=== PATIENT | male | born 1985 | race Caucasian/White ===

== ENCOUNTER 2018-06-08 13:04 | Emergency (ER) | payer BC, OTHER ==
[2018-06-08 14:56] VITALS: BP 143/85
--- NOTE | 2018-06-08 15:44 | ED ---
Respiratory - HPI Summary HPI Summary: 32 yr old male with the complaint of cough for 26 days, at times recently some specks of blood in the sputum. Some chills and fever feeling. He denies SOB. He has no weight loss. - History of Current Complaint Chief Complaint: UCRespiratory Stated Complaint: COUGH, VOMITING Time Seen by Provider: 06/08/18 14:53 Pain Intensity: 6 - Allergy/Home Medications Allergies/Adverse Reactions: Allergies Allergy/AdvReac Type Severity Reaction Status Date / Time No Known Allergies Allergy Verified 06/08/18 14:45 Home Medications: Home Medications [place] Carbonate TAB* 600 mg PO DAILY 06/08/18 [History Confirmed 06/08/18] PMH/Surg Hx/FS Hx/Imm Hx Infectious Disease History: No Infectious Disease History: Denies: Traveled Outside the [place] in Last 30 Days - Family History Known Family History: Positive: None - Social History Occupation: Employed Full-time Alcohol Use: None Substance Use Type: Reports: None Smoking Status (MU): Light Every Day Tobacco Smoker Type: Cigarettes Amount Used/How Often: 1/2 PPD Have You Smoked in the Last Year: Yes Review of Systems Constitutional: Negative Positive: Sore Throat, Nasal Discharge Positive: Cough All Other Systems Reviewed And Are Negative: Yes Physical Exam Triage Information Reviewed: Yes Vital Signs On Initial Exam: Initial Vitals Temp Pulse Resp BP Pulse Ox 98.2 F 65 16 143/85 100 06/08/18 14:46 06/08/18 14:46 06/08/18 14:46 06/08/18 14:46 06/08/18 14:46 Vital Signs Reviewed: Yes Appearance: Positive: Well-Appearing, No Pain Distress Skin: Positive: Warm, Skin Color Reflects Adequate Perfusion Head/Face: Positive: Normal Head/Face Inspection Eyes: Positive: EOMI ENT: Positive: Nasal congestion, TMs normal, Sinus tenderness Neck: Positive: Nontender Respiratory/Lung Sounds: Positive: Clear to Auscultation, Breath Sounds Present Cardiovascular: Positive: RRR. Negative: Murmur Abdomen Description: Negative: Distended Musculoskeletal: Positive: Strength/ROM Intact Neurological: Positive: Sensory/Motor Intact, Alert, Oriented to Person Place, Time, CN Intact II-III Psychiatric: Positive: Normal - [place] Coma Scale Best Eye Response: 4 - Spontaneous Best Motor Response: 6 - Obeys Commands Best Verbal Response: 5 - Oriented Coma Scale Total: 15 Diagnostics - Vital Signs Vital Signs Temp Pulse Resp BP Pulse Ox 06/08/18 14:46 98.2 F 65 16 143/85 100 - Laboratory Lab Statement: Any lab studies that have been ordered have been reviewed, and results considered in the medical decision making process. - Radiology chest xray jerri tatum Radiology Interpretation Completed By: Radiologist - NAD Disposition - Course Course Of Treatment: 32 yr old male with sinusitis, and coughing. Plan dc home on biaxin. BP check with pmd. - Diagnoses Provider Diagnoses: Sinusitis, Hypertension Discharge - Sign-Out/Discharge Documenting (check all that apply): Patient Departure All imaging exams completed and their final reports reviewed: Yes - Discharge Plan Condition: Good Disposition: HOME Prescriptions: Clarithromycin TAB* [Biaxin 500 MG TAB*] 500 mg PO BID #20 tab Patient Education Materials: Sinusitis (ED), Hypertension (ED) Referrals: Rodger Vázquez MD [Primary Care Provider] - 2 Days - Billing Disposition and Condition Condition: GOOD Disposition: Home
== END 2018-06-08 16:04 | disposition home or self-care (01) ==
LOC: UCCORT 13:04
DX: J32.9 Chronic sinusitis, unspecified (principal); I10 Essential (primary) hypertension; F17.210 Nicotine dependence, cigarettes, uncomplicated
CPT/HCPCS: 71046; 99202; G0463

== ENCOUNTER 2019-08-11 11:26 | Emergency (ER) | payer OTHER ==
--- NOTE | 2019-08-11 11:48 | ED ---
Psychiatric Complaint - HPI Summary HPI Summary: Patient is a 34 y/o M w/ Hx of bipolar disorder and schizophrenia who [place] to [facility] [place] accompanied by family for SI. Patient claims to have been experiencing SI for the past twenty years. Patient claims to receive a monthly shot from his psychiatrist to manage his psychiatric conditions but did not do so last month. He states that he did not want to take his shot as he has been experiencing visual and auditory hallucinations. Patient notes that he was formerly on lithium but this was discontinued due to similar visual and auditory hallucinations. Patient notes Hx of ADHD. He is a non-smoker and denies alcohol and substance usage. FMHx of bipolar disorder, HTN, and non-Hodgkin's lymphoma is reported. Home medications and allergies are reviewed. Per triage, "Pt comes to the ER with complaints of suicidal thoughts and not feeling well for awhile. he stopped taking his medications for his Schizophrenia and bipolar in June. he has SI and not sleeping well. pt is cooperative. pt did attempt to kill self by injecting epi and overdosing on pills and most recently cutting left wrist". No fever as vitals show temp of 98.7 F. - History Of Current Complaint Chief Complaint: EDMentalHealth Time Seen by Provider: 08/11/19 11:33 Hx Obtained From: Patient Onset/Duration: Lasting Weeks, Still Present Timing: Weeks Character: Depressed Aggravating Factor(s): Medication Non-compliance Associated Signs And Symptoms: Positive: Hallucinating - reports w/ his medication Has Suicidal: Reports: Thoughts - Allergies/Home Medications Allergies/Adverse Reactions: Allergies Allergy/AdvReac Type Severity Reaction Status Date / Time No Known Allergies Allergy Verified 08/11/19 11:33 Home Medications: Home Medications Aripiprazole Maintena (NF) [Abilify Maintena (NF)] 400 mg IM Q28D 08/11/19 [ History Confirmed 08/11/19] PMH/Surg Hx/FS Hx/Imm Hx Sensory History: Denies: Hx Legally Blind, Hx Deafness Opthamlomology History: Denies: Hx Legally Blind EENT History: Denies: Hx Deafness Psychiatric History: Reports: Hx Attention Deficit Hyperactivity Disorder, Hx Schizophrenia, Hx Bipolar Disorder Infectious Disease History: No Infectious Disease History: Denies: Traveled Outside the [place] in Last 30 Days - Family History Known Family History: Positive: Hypertension, Other - bipolar Negative: Cardiac Disease - Social History Alcohol Use: None Substance Use Type: Reports: None Smoking Status (MU): Light Every Day Tobacco Smoker Type: Cigarettes Amount Used/How Often: 1/2 PPD Have You Smoked in the Last Year: Yes Review of Systems Negative: Fever - No fever as vitals show temp of 98.7 F. Positive: Other - SI, hallucinations w/ medications All Other Systems Reviewed And Are Negative: Yes Physical Exam - Summary Physical Exam Summary: VITAL SIGNS: Reviewed. GENERAL: Patient is a well-developed and nourished male who is lying comfortable in the stretcher. Patient is not in any acute respiratory distress. HEAD AND FACE: No signs of trauma. No ecchymosis, hematomas or skull depressions. No sinus tenderness. EYES: PERRLA, EOMI x 2, No injected conjunctiva, no nystagmus. EARS: Hearing grossly intact. Ear canals and tympanic membranes are within normal limits. MOUTH: Oropharynx within normal limits. NECK: Supple, trachea is midline, no adenopathy, no JVD, no carotid bruit, no c- spine tenderness, neck with full ROM. CHEST: Symmetric, no tenderness at palpation. LUNGS: Clear to auscultation bilaterally. No wheezing or crackles. CVS: Regular rate and rhythm, S1 and S2 present, no murmurs or gallops appreciated. ABDOMEN: Soft, non-tender. No signs of distention. No rebound, no guarding, and no masses palpated. Bowel sounds are normal. EXTREMITIES: FROM in all major joints, no edema, no cyanosis or clubbing. NEURO: Alert and oriented x 3. No acute neurological deficits. Speech is normal and follows commands. SKIN: Dry and warm. Triage Information Reviewed: Yes Vital Signs On Initial Exam: Initial Vitals Temp Pulse Resp BP Pulse Ox 98.7 F 84 16 149/83 97 08/11/19 11:29 08/11/19 11:29 08/11/19 11:29 08/11/19 11:29 08/11/19 11:29 Vital Signs Reviewed: Yes Procedures - Sedation Patient Received Moderate/Deep Sedation with Procedure: No Diagnostics - Vital Signs Vital Signs Temp Pulse Resp BP Pulse Ox 08/11/19 11:29 98.7 F 84 16 149/83 97 - Laboratory Result Diagrams: 08/11/19 12:10 03/07/20 12:10 Lab Statement: Any lab studies that have been ordered have been reviewed, and results considered in the medical decision making process. Re-Evaluation - Re-Evaluation First Eval Re-Evaluation Time: 17:00 Comment: Patient states that he does not want to be transferred and wants to go home. It was explained to the patient that he cannot as he is a danger to himself and others. Course/Dx - Course Assessment/Plan: Patient is a 34 y/o M w/ Hx of bipolar disorder and schizophrenia who presents to [facility] [place] accompanied by family for SI. Patient claims to have been experiencing SI for the past twenty years. Patient claims to receive a monthly shot from his psychiatrist to manage his psychiatric conditions but did not do so last month. He states that he did not want to take his shot as he has been experiencing visual and auditory hallucinations. Patient notes that he was formerly on lithium but this was discontinued due to similar visual and auditory hallucinations. Patient notes Hx of ADHD. He is a non-smoker and denies alcohol and substance usage. FMHx of bipolar disorder, HTN , and non-Hodgkin's lymphoma is reported. Home medications and allergies are reviewed. Per triage, "Pt comes to the ER with complaints of suicidal thoughts and not feeling well for awhile. he stopped taking his medications for his Schizophrenia and bipolar in June. he has SI and not sleeping well. pt is cooperative. pt did attempt to kill self by injecting epi and overdosing on pills and most recently cutting left wrist". No fever as vitals show temp of 98.7 F. Blood work w/o a significant abnormality. He is medically cleared. He is awaiting a MHE. Patient is hemodynamically stable and A+O x 3. Dr. Arora assessed the patient and recommended admission to a different hospital. MHE interactive producer explained the plan to patient and family members and they became upset and agitated. Discussed the case personally with Dr. Arora and recommended Zyprexa 5 mg po and Ativan 1 mg PO. He will come to the ED and will speak to the patient and his family as requested by family. Patient will be signed out to Dr. Mehta at shift change. - Differential Dx/Clinical Impression Differential Diagnosis/HQI/PQRI: Positive: Acute Psychosis, Anxiety, Suicidal Ideation Provider Diagnosis: Schizophrenia - Physician Notifications Discussed Care Of Patient With: Antonio Arora Time Discussed With Above Provider: 16:12 Instructed by Provider To: Other - Patient's case was reviewed by Dr. Arora, patient requires in-patient psych treatment and will be transferred to another facility. Discharge ED - Sign-Out/Discharge Documenting (check all that apply): Sign-Out Patient Signing out patient TO: Bay Mehta - Discharge Plan Condition: Stable Disposition: PSYCHIATRIC FACILITY-OTHER Referrals: Rodger Vázquez MD [Primary Care Provider] - - Billing Disposition and Condition Condition: STABLE Disposition: Psychiatric Facility Other - Attestation Statements Document Initiated by Scribe: Yes Documenting Scribe: DURGA FELIPE Provider For Whom Scribe is Documenting (Include Credential): CANDICE HAILE MD Scribe Attestation: I, DURGA FELIPE, scribed for CANDICE HAILE MD on 08/12/19 at 0831. Scribe Documentation Reviewed: Yes Provider Attestation: The documentation as recorded by the DURGA meadows accurately reflects the service I personally performed and the decisions made by me, CANDICE HAILE MD Status of Scribe Document: Viewed
[2019-08-11 12:15] LABS: Urine Appearance Clear; Urine Bilirubin Negative (Negative); Urine Blood Negative (Negative); Urine Color Yellow; Urine Glucose Negative (Negative); Urine Ketones Trace (Negative); Urine Nitrite Negative (Negative); Urine Protein Negative (Negative); Urine Specific Gravity 1.025 (1.010-1.030); Urine Urobilinogen Negative (Negative)
[2019-08-11 12:17] LABS: ABS Basophils 0.1 10^3/ul (0-0.2); ABS Eosinophils 0.1 10^3/ul (0-0.6); ABS Lymphocytes 1.8 10^3/ul (1.0-4.8); ABS Monocytes 0.8 10^3/ul (0-0.8); Eosinophil % 0.9 %; Hematocrit 40 % (42-52); Hemoglobin 14.3 g/dL (14.0-18.0); Lymphocyte % 23.1 %; Mean Corpuscular HGB Conc 36 g/dL (31-36); Mean Corpuscular Hemoglobin 32 pg (27-31); Mean Corpuscular Volume 88 fL (80-94); Mean Platelet Volume 7.8 fL (7.4-10.4); Platelet Count 229 10^3/uL (150-450); Red Blood Count 4.54 10^6 /uL (4.18-5.48); Red Cell Distribution Width 13 % (10-15); White Blood Count 7.7 10^3/uL (3.5-10.8)
[2019-08-11 12:32] LABS: ALT 11 U/L (7-52); AST 22 U/L (13-39); Albumin 4.1 g/dL (3.2-5.2); Albumin/Globulin Ratio 1.5 (1-3); Alkaline Phosphatase 82 U/L (34-104); Anion Gap 9 mmol/L (2-11); BUN/Creatinine Ratio 19.4 (8-20); Blood Urea Nitrogen 19 mg/dL (6-24); CO2 Carbon Dioxide 26 mmol/L (22-32); Calcium 8.6 mg/dL (8.6-10.3); Chloride 105 mmol/L (101-111); EGFR African American 105.9 (>60); EGFR Non-African American 87.6 (>60); Globulin 2.7 g/dL (2-4); Glucose 143 mg/dL (70-100); Potassium 3.5 mmol/L (3.5-5.0); Sodium 140 mmol/L (135-145); Total Protein 6.8 g/dL (6.4-8.9)
[2019-08-11 12:36] LABS: Urine Benzodiazepine Screen None Detected (None Detect); Urine Opiates Screen None Detected (None Detect)
[2019-08-11 12:53] LABS: Acetaminophen < 15 mcg/mL; Alcohol < 10 mg/dL (<10); Salicylate < 2.50 mg/dL (<30)
[2019-08-11 13:07] LABS: TSH (Thyroid Stimulating Horm) 1.27 mcIU/mL (0.34-5.60)
[2019-08-11] MEDS ORDERED: LORazepam INJ* 2 MG/ML 1 ML VIAL ONE ×2 (13:22→17:02)
[2019-08-11] MEDS ORDERED: OLANzapine TAB* 5 MG PO ONE (17:33)
[2019-08-11] MEDS ORDERED: LORazepam TAB(*) 1 MG PO ONE (17:33)
--- NOTE | 2019-08-11 20:43 | ED ---
Progress - Progress Note Progress Note: Patient is a sign out from Dr. Dias at change of shifts at 1900 on 08/11/2019 pending MH transfer. No new developments upon sign out to Dr. Dias at 0700 on 08/12/19, pending MHT. Re-Evaluation - Re-Evaluation First Eval Re-Evaluation Time: 17:00 Comment: Patient states that he does not want to be transferred and wants to go home. It was explained to the patient that he cannot as he is a danger to himself and others. Course/Dx - Course Course Of Treatment: Patient is a sign out from Dr. José Dias at change of shifts at 1900 on 08/11/2019, pending mental health transfer. Patient is signed out to Dr. José Dias with no new developments at change of shifts at 0700 on 08/12/19. - Diagnoses Provider Diagnoses: Schizophrenia - Provider Notifications Discussed Care Of Patient With: Antonio Arora Time Discussed With Above Provider: 16:12 Instructed by Provider To: Other - Patient's case was reviewed by Dr. Arora, patient requires in-patient psych treatment and will be transferred to another facility. Discharge ED - Sign-Out/Discharge Documenting (check all that apply): Receiving Sign-Out Receiving patient FROM: José Dias - Receiving sign out from Dr. Dias at change of shifts at 1900 on 08/11/19. - Discharge Plan Condition: Stable Referrals: Rodger Vázquez MD [Primary Care Provider] - - Attestation Statements Document Initiated by Scribe: Yes Documenting Scribe: Neo Ghosh Provider For Whom Scrchristophere is Documenting (Include Credential): Dr. Bay Mehta Scribe Attestation: I, Neo Ghosh, scribed for Dr. Bay Mehta on 08/12/19 at 0709. Status of Scribe Document: Ready Diagnostics - Vital Signs Vital Signs Temp Pulse Resp BP Pulse Ox 08/11/19 17:47 20 08/11/19 11:29 98.7 F 84 16 149/83 97 - Laboratory Lab Results: Lab Results 08/11/19 08/11/19 08/11/19 Range/Units 11:52 11:52 12:10 WBC 7.7 (3.5-10.8) 10^3/uL RBC 4.54 (4.18-5.48) 10^6 /uL Hgb 14.3 (14.0-18.0) g/dL Hct 40 L (42-52) % MCV 88 (80-94) fL MCH 32 H (27-31) pg MCHC 36 (31-36) g/dL RDW 13 (10-15) % Plt Count 229 (150-450) 10^3/uL MPV 7.8 (7.4-10.4) fL Neut % (Auto) 65.1 % Lymph % (Auto) 23.1 % [place] % (Auto) 10.1 % Eos % (Auto) 0.9 % Baso % (Auto) 0.8 % Absolute Neuts (auto) 5.0 (1.5-7.7) 10^3/ul Absolute Lymphs (auto) 1.8 (1.0-4.8) 10^3/ul Absolute Monos (auto) 0.8 (0-0.8) 10^3/ul Absolute Eos (auto) 0.1 (0-0.6) 10^3/ul Absolute Basos (auto) 0.1 (0-0.2) 10^3/ul Absolute Nucleated RBC 0.0 10^3/ul Nucleated RBC % 0.0 Sodium (135-145) mmol/L Potassium (3.5-5.0) mmol/L Chloride (101-111) mmol/L Carbon Dioxide (22-32) mmol/L Anion Gap (2-11) mmol/L BUN (6-24) mg/dL Creatinine (0.67-1.17) mg/dL Est GFR ( Amer) (>60) Est GFR (Non-Af Amer) (>60) BUN/Creatinine Ratio (8-20) Glucose (70-100) mg/dL Calcium (8.6-10.3) mg/dL Total Bilirubin (0.2-1.0) mg/dL AST (13-39) U/L ALT (7-52) U/L Alkaline Phosphatase (34-104) U/L Total Protein (6.4-8.9) g/dL Albumin (3.2-5.2) g/dL Globulin (2-4) g/dL Albumin/Globulin Ratio (1-3) TSH (0.34-5.60) mcIU/mL Urine Color Yellow Urine Appearance Clear Urine pH 5.0 (5-9) Ur Specific [place] 1.025 (1.010-1.030) Urine Protein Negative (Negative) Urine Ketones Trace A (Negative) Urine Blood Negative (Negative) Urine Nitrate Negative (Negative) Urine Bilirubin Negative (Negative) Urine Urobilinogen Negative (Negative) Ur Leukocyte Esterase Negative (Negative) Urine Glucose Negative (Negative) Salicylates (<30) mg/dL Urine Opiates Screen None detected (None Detect) Acetaminophen mcg/mL Ur Barbiturates Screen None detected (None Detect) Ur Phencyclidine Scrn None detected (None Detect) Ur Amphetamines Screen Presumptive positive A (None Detect) U Benzodiazepines Scrn None detected (None Detect) Urine Cocaine Screen None detected (None Detect) U Cannabinoids Screen None detected (None Detect) Serum Alcohol (<10) mg/dL 08/11/19 Range/Units 12:10 WBC (3.5-10.8) 10^3/uL RBC (4.18-5.48) 10^6 /uL Hgb (14.0-18.0) g/dL Hct (42-52) % MCV (80-94) fL MCH (27-31) pg MCHC (31-36) g/dL RDW (10-15) % Plt Count (150-450) 10^3/uL MPV (7.4-10.4) fL Neut % (Auto) % Lymph % (Auto) % [place] % (Auto) % Eos % (Auto) % Baso % (Auto) % Absolute Neuts (auto) (1.5-7.7) 10^3/ul Absolute Lymphs (auto) (1.0-4.8) 10^3/ul Absolute Monos (auto) (0-0.8) 10^3/ul Absolute Eos (auto) (0-0.6) 10^3/ul Absolute Basos (auto) (0-0.2) 10^3/ul Absolute Nucleated RBC 10^3/ul Nucleated RBC % Sodium 140 (135-145) mmol/L Potassium 3.5 (3.5-5.0) mmol/L Chloride 105 (101-111) mmol/L Carbon Dioxide 26 (22-32) mmol/L Anion Gap 9 (2-11) mmol/L BUN 19 (6-24) mg/dL Creatinine 0.98 (0.67-1.17) mg/dL Est GFR ( Amer) 105.9 (>60) Est GFR (Non-Af Amer) 87.6 (>60) BUN/Creatinine Ratio 19.4 (8-20) Glucose 143 H (70-100) mg/dL Calcium 8.6 (8.6-10.3) mg/dL Total Bilirubin 0.70 (0.2-1.0) mg/dL AST 22 (13-39) U/L ALT 11 (7-52) U/L Alkaline Phosphatase 82 (34-104) U/L Total Protein 6.8 (6.4-8.9) g/dL Albumin 4.1 (3.2-5.2) g/dL Globulin 2.7 (2-4) g/dL Albumin/Globulin Ratio 1.5 (1-3) TSH 1.27 (0.34-5.60) mcIU/mL Urine Color Urine Appearance Urine pH (5-9) Ur Specific [place] (1.010-1.030) Urine Protein (Negative) Urine Ketones (Negative) Urine Blood (Negative) Urine Nitrate (Negative) Urine Bilirubin (Negative) Urine Urobilinogen (Negative) Ur Leukocyte Esterase (Negative) Urine Glucose (Negative) Salicylates < 2.50 (<30) mg/dL Urine Opiates Screen (None Detect) Acetaminophen < 15 mcg/mL Ur Barbiturates Screen (None Detect) Ur Phencyclidine Scrn (None Detect) Ur Amphetamines Screen (None Detect) U Benzodiazepines Scrn (None Detect) Urine Cocaine Screen (None Detect) U Cannabinoids Screen (None Detect) Serum Alcohol < 10 (<10) mg/dL Result Diagrams: 08/11/19 12:10 08/11/19 12:10 Lab Statement: Any lab studies that have been ordered have been reviewed, and results considered in the medical decision making process. - EKG 2205 Cardiac Rate: NL - 64 bpm EKG Rhythm: Sinus Rhythm ST Segment: Normal Ectopy: None EKG Comparison: No Significant Change Summary of EKG Findings: NSR at 64 BPM, P waves, QRS complex, and T waves are within normal limits, T waves and intervals are normal, no ischemic changes. This is a normal EKG. An ED physician has reviewed this report.
--- NOTE | 2019-08-12 07:08 | ED ---
Progress - Progress Note Progress Note: Patient is a sign out from Dr. Bay Mehta to Dr. José Dias at change of shifts at 0700 on 08/12/2019, pending mental health transfer. Re-Evaluation - Re-Evaluation First Eval Re-Evaluation Time: 07:47 Comment: Per social science analyst, patient has been set up for transfer to [facility] in [place]. Second Eval Re-Evaluation Time: 08:47 Comment: Doctor to doctor with Dr. Turner at [facility] performed. Discussed patient case with accepting physician at [facility]. Course/Dx - Course Course Of Treatment: I discussed the case with Dr. Turner and he accepted the patient for transfer. Patient is hemodynamically stable alert and oriented 3. - Diagnoses Provider Diagnoses: Schizophrenia - Provider Notifications Time Discussed With Above Provider: 08:50 Instructed by Provider To: Transfer - Discussed patient case with Dr. Turner, accepting physician at [facility]. Discharge ED - Sign-Out/Discharge Documenting (check all that apply): Patient Departure - Transfer, Receiving Sign -Out Receiving patient FROM: Bay Mehta - Discharge Plan Condition: Stable Disposition: PSYCHIATRIC FACILITY-OTHER Referrals: Rodger Vázquez MD [Primary Care Provider] - - Billing Disposition and Condition Condition: STABLE Disposition: Psychiatric Facility Other - Attestation Statements Document Initiated by Portiaibpastor: Yes Documenting Scribe: Vance Way Provider For Whom Sonal is Documenting (Include Credential): José Dias MD Scribe Attestation: I, Vance Way, scribed for José Dias MD on 08/13/19 at 0713. Scribe Documentation Reviewed: Yes Provider Attestation: The documentation as recorded by the portiaibeVance accurately reflects the service I personally performed and the decisions made by me, José Dias MD Status of Scribe Document: Viewed
[2019-08-12] MEDS ORDERED: LORazepam TAB(*) 1 MG PO ONE (09:08)
[2019-08-12 09:19] VITALS: BP 124/68
== END 2019-08-12 09:25 ==
LOC: ED 11:26
DX: F20.9 Schizophrenia, unspecified (principal)
CPT/HCPCS: 36415; 80053; 80307; 80320; 80329; 81003; 84443; 85025; 93005; 99285; A9270-GY; G0480; J2060